=== PATIENT | female | born 1940 | race Caucasian/White ===

== ENCOUNTER → 2019-04-23 | Outpatient (CLI) | payer OTHER ==
[~2019-04-23] MED LIST: APAP W/CODEINE1 TA2 PO; ASPIRIN EC325 M1 PO; COZAAR 50 MG TA50 M1 PO; FOSAMAX 70 MG T70 MG PO; LEVOXYL112 MCG PO; MOBIC15 MG PO; NORCO 5-325 TA1 EAC1 PO; TOPROL XL25 MG PO; TRIAMTERENE-HC1 EAC1 PO; VITAMIN D5000 UNIT PO; WELLBUTRIN SR150 MG
== END ==
LOC: RAD 10:34
DX: M19.012 Primary osteoarthritis, left shoulder (principal); M25.712 Osteophyte, left shoulder; M47.816 Spondylosis without myelopathy or radiculopathy, lumbar region; M48.061 Spinal stenosis, lumbar region without neurogenic claudication; M25.562 Pain in left knee; M25.552 Pain in left hip

== ENCOUNTER 2019-05-03 11:51 | Emergency (ER) | payer OTHER ==
[~2019-05-03] VITALS: Ht 152.4 cm; Wt 77.1 kg
[~2019-05-03 11:51] MED LIST changes: -APAP W/CODEINE1 TA2 PO; -FOSAMAX 70 MG T70 MG PO; -MOBIC15 MG PO; -NORCO 5-325 TA1 EAC1 PO; -TOPROL XL25 MG PO; -VITAMIN D5000 UNIT PO
[2019-05-03] MEDS ORDERED: FOSAMAX 70 MG T70 MG PO (12:05)
[2019-05-03] MEDS ORDERED: TOPROL XL25 MG PO (12:06)
[2019-05-03] MEDS ORDERED: VITAMIN D5000 UNIT PO (12:08)
[2019-05-03] MEDS ORDERED: APAP W/CODEINE1 TA2 PO (12:11)
[2019-05-03] MEDS ORDERED: NORCO 5-325 TA1 EAC1 PO (14:14)
[2019-05-03] MEDS ORDERED: MOBIC15 MG PO (14:14)
[2019-05-03 14:38] VITALS: BP 166/63
== END 2019-05-03 14:44 | disposition home or self-care (01) ==
LOC: ER 11:51
DX: M54.32 Sciatica, left side (principal); I10 Essential (primary) hypertension; E03.9 Hypothyroidism, unspecified; F32.9 Major depressive disorder, single episode, unspecified; E66.9 Obesity, unspecified; Z68.33 Body mass index [BMI] 33.0-33.9, adult; Z90.710 Acquired absence of both cervix and uterus; Z90.49 Acquired absence of other specified parts of digestive tract

== ENCOUNTER 2020-04-04 15:55 | Emergency (ER) | payer OTHER ==
[~2020-04-04] VITALS: Ht 152.4 cm; Wt 80.3 kg
[~2020-04-04 15:55] MED LIST changes: +APAP W/CODEINE1 TA2 PO; +FOSAMAX 70 MG T70 MG PO; +MOBIC15 MG PO; +NORCO 5-325 TA1 EAC1 PO; +TOPROL XL25 MG PO; +VITAMIN D5000 UNIT PO
[2020-04-04 16:46] LABS: ABSOLUTE NEUTROPHILS 4.1 thou/uL (1.4-8.2); BASOPHILS 1.1 % (0.0-2.0); EOSINOPHILS 3.5 % (0.0-3.0); HEMATOCRIT 42.3 % (37.0-47.0); HEMOGLOBIN 14.1 gm/dL (12.0-15.0); MCH 28.4 pg (26.0-34.0); MCHC 33.3 g/dL (28.0-37.0); MCV 85.3 fL (80.0-100.0); MONOCYTES 6.9 % (1.0-8.0); PLATELET COUNT 191 thou/uL (150-400); POLYS 62.5 % (36.0-66.0); RBC 4.96 mil/uL (4.20-5.00); RDW 14.3 % (10.5-14.5); WBC 6.5 thou/uL (4.0-11.0)
[2020-04-04 16:56] LABS: ANION GAP 10 mmol/L (7-16); BUN 11 mg/dL (7-18); CHLORIDE 106 mmol/L (98-107); CO2 28 mmol/L (21-32); CREATININE 0.9 mg/dL (0.6-1.0); GLUCOSE 121 mg/dL (74-106); POTASSIUM 3.6 mmol/L (3.5-5.1); SODIUM 144 mmol/L (136-145)
[2020-04-04 16:59] LABS: APTT 28.1 Seconds (24.5-32.8); PROTIME 10.1 Seconds (9.3-11.4)
[2020-04-04 17:06] LABS: ALBUMIN 3.6 g/dL (3.4-5.0); MAGNESIUM 1.9 mg/dL (1.8-2.4); SGOT 16 U/L (15-37); SGPT 19 U/L (30-65); TOTAL BILIRUBIN 0.5 mg/dL (0.2-1.0); TOTAL PROTEIN 7.5 g/dL (6.4-8.2); TROPONIN-I <0.06 ng/mL (<0.06)
[2020-04-04 18:15] VITALS: BP 166/59
[2020-04-04 18:16] LABS: URINE BILIRUBIN NEGATIVE (Negative); URINE BLOOD NEGATIVE (Negative); URINE CLARITY CLEAR; URINE COLOR YELLOW; URINE GLUCOSE-RANDOM* NEGATIVE (Negative); URINE KETONES NEGATIVE (Negative); URINE NITRITE-REFLEX NEGATIVE (Negative); URINE PROTEIN (DIPSTICK) NEGATIVE (Negative); URINE UROBILINOGEN 0.2 E.U./dl (0.2-1.0)
[2020-04-04 18:19] LABS: AMP/METHAMP Negative (Negative); BARBITURATES Negative (Negative); BENZODIAZEPINES Negative (Negative); COCAINE Negative (Negative); METHADONE Negative (Negative); OPIATES Negative (Negative); PCP Negative (Negative)
[2020-04-04 18:26] LABS: URINE LEUKOCYTES-REFLEX 2+ (Negative)
[2020-04-04 19:07] LABS: BACTERIA-REFLEX 1-9 Few /HPF (None Seen); CASTS None Seen /LPF (None Seen); CRYSTALS None Seen /LPF (None Seen); MUCUS 0-3 Light strn/LPF (None Seen); SQUAMOUS >10 Many /LPF (0-3); URINE RBC 0-2 Rare /HPF (0-2); URINE WBC-REFLEX 0-5 Rare /HPF (0-5)
--- NOTE | 2020-04-05 08:25 | EKG ---
[facility] [place] [address] ELECTROCARDIOGRAM REPORT Name: RENAGLORIASTEPHANY CARRION [facility]: [facility] Manuel[facility] Manuel#: [id number] Admission: 04/04/20 Attend Phys: Discharge: 04/04/20 Date of : 36 Report #: [id number] THIS REPORT FOR: cc: Jerome Lynn Steven F. DO Lundgren, Craig H. MD [facility] ~ THIS REPORT FOR: //name// [facility] ED Test Date: 2020-04-04 Test Time: 16:06:09 Pat Name: STEPHANY TSAI Department: Room: Gender: F Train Announcer: RHINA : 1940 Requested By: Alec Castellon Order Number: [id number] MD: Naveen Lim Measurements Intervals [place] Rate: 84 P: 57 MT: 197 QRS: 6 QRSD: 126 T: 142 QT: 402 QTc: 476 Interpretive Statements Sinus rhythm Left bundle branch block Compared to ECG 08/28/2007 16:55:11 Left bundle-branch block now present Electronically Signed On 04-05-2020 8:25:15 CDT by Naveen Lim [email or web address] <ELECTRONICALLY SIGNED> By: Naveen Lim MD, [facility] 04/05/20 0825 [id number] [id number] Naveen Lim MD, [facility] /EPI
== END 2020-04-04 18:15 | disposition home or self-care (01) ==
LOC: ER 15:55
PROVIDERS: Emergency Medicine
DX: G45.9 Transient cerebral ischemic attack, unspecified (principal); R41.0 Disorientation, unspecified; I10 Essential (primary) hypertension; E03.9 Hypothyroidism, unspecified; F32.9 Major depressive disorder, single episode, unspecified; Z98.84 Bariatric surgery status; Z86.73 Personal history of transient ischemic attack (TIA), and cerebral infarction without residual deficits; Z90.711 Acquired absence of uterus with remaining cervical stump; Z79.899 Other long term (current) drug therapy; Z79.82 Long term (current) use of aspirin

== ENCOUNTER → 2020-04-28 | Outpatient (CLI) | payer OTHER | LOC: ULTRA 13:00 | PROVIDERS: ATTEND Neuromusculoskeletal Medicine & OMM | DX: I65.23 Occlusion and stenosis of bilateral carotid arteries (principal) ==

== ENCOUNTER → 2020-08-18 | Outpatient (CLI) | payer OTHER | LOC: MRI 09:28 | PROVIDERS: ATTEND Psychiatry & Neurology Neuromuscular Medicine | DX: I67.82 Cerebral ischemia (principal); G45.9 Transient cerebral ischemic attack, unspecified; R26.9 Unspecified abnormalities of gait and mobility; G93.89 Other specified disorders of brain; Z82.49 Family history of ischemic heart disease and other diseases of the circulatory system ==